=== PATIENT | male | born 2000 | race African-American/Black ===

== ENCOUNTER 2023-08-13 19:33 | Emergency (ER) | payer OTHER ==
[2023-08-13 19:45] VITALS: BP 114/67; PULSE 65; RESP 16; TEMP 98.2; BMI 19.9
[2023-08-13] MEDS ORDERED: IBUPROFEN 600 MG TABLET (FP) PO ONE ×2 (22:31→22:49)
== END 2023-08-13 23:11 | disposition home or self-care (01) ==
LOC: JER 19:33 → JERFT 19:33
DX: M25.512 Pain in left shoulder (principal); M79.672 Pain in left foot; R20.0 Anesthesia of skin; V49.50XA Passenger injured in collision with unspecified motor vehicles in traffic accident, initial encounter; Y92.410 Unspecified street and highway as the place of occurrence of the external cause
CPT/HCPCS: 99283-25